=== PATIENT | male | born 1955 | race Hispanic/Latino ===

== ENCOUNTER 2023-04-07 21:57 | Emergency (ER) | payer BC ==
--- OUTSIDE RECORDS SUMMARY | 2023-04-07 22:01 | XMS REPORT | Continuity of Care Document ---
:1955 Author Organization [facility] t Address [address] [facility] [address] [place] [id number] Care Team Providers Name Role Phone MATTHEW CLARK Attending Clinician Unavailable DEEPALI ROSS Attending Clinician Unavailable Lab, Adc Fam Pob I Attending Clinician Unavailable Sybil Ackerman Attending Clinician SYBIL HENDERSON Attending Clinician Unavailable Hardy DE LEON, Jennifer Chapa Attending Clinician Unavailable Kory Dumont MD Attending Clinician [facility] Attending Clinician Unavailable Joey Fowler Attending Clinician JOEY CRUZ Attending Clinician Unavailable Payers Payer Name Policy Type Policy Number Effective Date Expiration Date [id number] 00:00:00 OUT OF STATE Problems This patient has no known problems. Allergies, Adverse Reactions, Alerts Allergy Allergy Status Severity Reaction(s) Onset Inactive Treating Comm ents Source Name Type Date Date Clinician NO KNOWN Drug Active Univers ALLERGIE Class [facility] Social History Social Habit Start Date Stop Date Quantity Comments Source Sex Assigned At Uni versity [facility] Exposure to SARS-CoV-2 Not sure Un iversity [facility] (event) [facility] Smoking Status Start Date Stop Date Source Unknown if ever smoked Universit [facility] Medications Ordered Filled Start Stop Current Ordering Indication Dosage Frequency Signature Comments Components Source Medication Medication Date Date Medication? Clinician (SIG) Name Name No known No Univers medications [facility] No known No Univers medications [facility] No known No Univers medications [facility] No known No Univers medications [facility] No known No Univers medications [facility] Vital Signs Vital Name Observation Time Observation Value Comments Source Systolic blood 2020-04-21 01:03:00 134 mm[Hg] Univer sity of pressure [facility] Diastolic blood 2020-04-21 01:03:00 93 mm[Hg] Unive rsity of pressure [facility] Heart rate 2020-04-21 01:03:00 91 /min Universi [facility] Body temperature 2020-04-21 01:03:00 37.17 Negra [facility] Respiratory rate 2020-04-21 01:03:00 18 /min [facility] Body height 2020-04-21 01:03:00 [facility] weight 2020-04-21 01:03:00 76.114 kg [facility] BMI 2020-04-21 01:03:00 29.72 kg/m2 [facility] Oxygen saturation in 2020-04-21 01:03:00 98 /min [facility] Arterial blood by [facility] Pulse oximetry Branch Procedures This patient has no known procedures. Encounters Start End Encounter Admission Attending Care Care Encounter Source Date/Time Date/Time Type Type Clinicians Facility Department ID 2020-10-25 2020-10-25 Outpatient Ceci CLARK [facility] [id number] Univers 09:00:00 09:00:00 [facility] 2020-10-22 2020-10-22 Outpatient Ceci CLARK [facility] [id number] Univers 10:00:00 10:00:00 [facility] 2020-10-18 2020-10-18 Outpatient Ceci CLARK [facility] [id number] Univers 16:25:00 16:25:00 [facility] 2020-10-13 2020-10-13 Outpatient Ceci ROSS [facility] [id number] Univers 10:30:00 10:30:00 DEEPALI [facility] 2020-09-15 2020-09-15 Outpatient [facility] [id number] Univers 16:30:00 16:30:00 [facility] 2020-05-03 2020-05-03 Laboratory Lab, Adc Fam Pob I [facility] [id number] Univers 10:28:19 10:48:19 Only Sybil Henderson [facility] [id number] ity of [place] [id number] Robbie as Professio [phone] [address] Office [facility] 2020-05-03 2020-05-03 Outpatient R SANTIAGO [facility] [id number] Univers 10:20:00 10:20:00 SYBIL [facility] 2020-04-22 2020-04-22 Letter NATY Dash [id number] Univers 00:00:00 00:00:00 (Out) Jennifer Chapa JULIETA [id number] it y of [facility] [id number] Robbie as [phone] [address] 2020-04-22 2020-04-22 Telephone NATY Dumont [id number] Univers 00:00:00 00:00:00 Kory RENDON [id number] i ty [facility] [id number] Robbie as [phone] [address] 2020-04-20 2020-04-20 Urgent Provider, [facility] [id number] Univers 18:40:16 19:00:16 Care Joey Cruz [facility] [id number] ity [place] [id number] Robbie as Professio [phone] [address] Office Building [facility] 2020-04-20 2020-04-20 Outpatient R ANTHONY [facility] [id number] Univers 19:00:00 [facility]00[facility] Results This patient has no known results.
[2023-04-07] MEDS ORDERED: dexAMETHasone 10 MG/ML VIAL ONE (23:10)
[2023-04-07] MEDS ORDERED: NA CHLORIDE 0.9% 1,000 ML ONE (23:10)
[2023-04-07] MEDS ORDERED: METOCLOPRAMIDE 10 MG/2mL INJ ONE (23:10)
[2023-04-07] MEDS ORDERED: MECLIZINE HCL 12.5 MG TAB ONE (23:10)
[2023-04-07 23:11] LABS: Absolute Lymphocytes (CBC) 0.8 K/uL (0.7-4.9); Hematocrit 40.5 % (39.6-49.0); Lymphocytes % 10.4 % (15.3-44.8); MCV 85.1 fL (80-100); MPV 7.9 fL (7.6-11.3); Platelets 278 thou/uL (152-406); RBC Red Blood Cell Count 4.76 M/uL (4.33-5.43)
[2023-04-07 23:33] LABS: Magnesium 2.1 mg/dL (1.6-2.4); Potassium 3.7 mEq/L (3.5-5.1)
--- NOTE | 2023-04-08 01:24 | ER ---
Nurse's Notes [facility] Name: Yobani Al Age: 67 yrs Sex: Male : 1955 Arrival Date: 04/07/2023 Time: 21:57 Bed 2 Private MD: Diagnosis: Headache;Dizziness and giddiness;Diabetes mellitus due to underlying condition with hyperglycemia;Nausea with vomiting, unspecified Presentation: 04/07 22:31 Chief complaint: Patient states: headache to the top of his head X1 month. Pt states cm10 that the headache got worse tonight. Pt reports dizziness that started a few hours ago. Also reports that he has not been taking his diabetes medication like he should. Pt denies any other symptoms. Coronavirus screen: Vaccine status: Patient reports receiving the 2nd dose of the covid vaccine. Client denies travel out of the [place] in the last 14 days. Ebola Screen: Patient denies travel to an Ebola-affected area in the 21 days before illness onset. No symptoms or risks identified at this time. Initial Sepsis Screen: Does the patient meet any 2 criteria? No. Patient's initial sepsis screen is negative. Does the patient have a suspected source of infection? No. Patient's initial sepsis screen is negative. Risk Assessment: Do you want to hurt yourself or someone else? Patient reports no desire to harm self or others. Onset of symptoms was April 07, 2023. 22:31 Method Of Arrival: Ambulatory cm10 22:31 Acuity: DK 3 cm10 Triage Assessment: 22:51 Headache History: The patient has had previous headaches and this one is similar to km8 previous episodes. General: Appears in no apparent distress. comfortable, Behavior is calm, cooperative, appropriate for age. Pain: Complains of pain in top of head Pain currently is 8 out of 10 on a pain scale. Quality of pain is described as aching, Pain began 1 month ago Also complains of nausea. Historical: - Allergies: 22:33 No Known Allergies; cm10 - PMHx: 22:33 Diabetes mellitus; cm10 - Immunization history:: Adult Immunizations unknown. - Social history:: Smoking status: Patient denies any tobacco usage or history of. Screenin:47 [facility] ED Fall Risk Assessment (Adult) History of falling in the last 3 months, km8 including since admission No falls in past 3 months (0 pts) Confusion or Disorientation No (0 pts) Intoxicated or Sedated No (0 pts) Impaired Gait No (0 pts) Mobility Assist Device Used No (0 pt) Altered Elimination No (0 pt) Score/Fall Risk Level 0 - 2 = Low Risk Oriented to surroundings, Maintained a safe environment, Educated pt \T\ family on fall prevention, incl call for assistance when getting out of bed, Assessed \T\ reinforced patient's understanding of fall precautions. Abuse screen: Denies threats or abuse. Denies injuries from another. Nutritional screening: No deficits noted. Tuberculosis screening: No symptoms or risk factors identified. Assessment: 22:47 General: Appears in no apparent distress. comfortable, Behavior is calm, cooperative, km8 appropriate for age. Pain: Complains of pain in top of head Pain currently is 8 out of 10 on a pain scale. Quality of pain is described as aching, Pain began 1 month ago. Neuro: Esteban Agitation-Sedation Scale (RASS): 0 - Alert and Calm Level of Consciousness is awake, alert, obeys commands, Oriented to person, place, time, situation, Reports headache since 1 month ago top of head. Cardiovascular: Denies chest pain, shortness of breath, Capillary refill < 3 seconds Patient's skin is warm and dry. Respiratory: Airway is patent Respiratory effort is even, unlabored, Respiratory pattern is regular, symmetrical. GI: Reports vomiting, since 1500 x2 episodes; nausea resolved after. : No deficits noted. No signs and/or symptoms were reported regarding the genitourinary system. EENT: No deficits noted. No signs and/or symptoms were reported regarding the EENT system. Derm: No deficits noted. No signs and/or symptoms reported regarding the dermatologic system. Skin is intact, is healthy with good turgor, Skin is dry, Skin is pink, warm \T\ dry. normal, Skin temperature is warm. Musculoskeletal: No deficits noted. No signs and/or symptoms reported regarding the musculoskeletal system. Range of motion: intact in all extremities. 04/08 00:00 Reassessment: Patient appears in no apparent distress at this time. Patient and/or km8 family updated on plan of care and expected duration. Pain level reassessed. Patient is alert, oriented x 3, equal unlabored respirations, skin warm/dry/pink. Patient states feeling better. Patient states symptoms have improved. 01:00 Reassessment: Patient appears in no apparent distress at this time. No changes from km8 previously documented assessment. Patient and/or family updated on plan of care and expected duration. Pain level reassessed. Patient is alert, oriented x 3, equal unlabored respirations, skin warm/dry/pink. Vital Signs: 04/07 22:31 BP 146 / 78; Pulse 62; Resp 16; Temp 97.6; Pulse Ox 100% ; Weight 70.76 kg; Height 5 cm10 ft. 3 in. ; Pain 8/10; 22:47 BP 137 / 71; Pulse 63; Resp 16 S; Pulse Ox 99% on R/A; km8 23:00 BP 149 / 81; Pulse 59; Resp 16 S; Pulse Ox 100% on R/A; km8 04/08 00:00 BP 137 / 71; Pulse 63; Resp 15; Pulse Ox 100% on R/A; km8 00:30 BP 126 / 67; Pulse 67; Resp 15 S; Pulse Ox 99% on R/A; km8 01:52 BP 119 / 71; Pulse 66; Resp 16 S; Pulse Ox 100% on R/A; lg3 04/07 22:31 Body Mass Index 27.63 (70.76 kg, 160.02 cm) cm10 04/07 22:31 Pain Scale: Adult cm10 ED Course: 04/07 22:06 Patient arrived in ED. gm2 22:19 Zeke Galan PA is PHCP. cp 22:19 Dex Curtis MD is Attending Physician. cp 22:33 Triage completed. cm10 22:33 Arm band placed on Patient placed in an exam room, on a stretcher, on pulse oximetry. cm10 22:40 Danuta Mejia RN is Primary Nurse. km8 22:47 Patient has correct armband on for positive identification. Placed in gown. Bed in low km8 position. Call light in reach. Side rails up X 1. Client placed on continuous cardiac and pulse oximetry monitoring. NIBP monitoring applied. 22:47 Inserted saline lock: 20 gauge in left forearm, using aseptic technique. Blood km8 collected. Patient maintains SpO2 saturation greater than 95% on room air. 23:18 XRAY Chest (1 view) In Process Unspecified. EDMS 23:41 CT Head Brain wo Cont In Process Unspecified. EDOR 04/08 01:11 Urinalysis W/Microscopic Sent. [facility] 01:52 No provider procedures requiring assistance completed. IV discontinued, intact, lg3 bleeding controlled, No redness/swelling at site. Pressure dressing applied. Administered Medications: 04/07 23:12 Drug: NS 0.9% IV 500 ml IV at bolus once Route: IV; Rate: bolus; Site: left forearm; [facility] 23:48 Follow up: IV Status: Completed infusion; IV Intake: 500ml [facility] 23:12 Drug: Meclizine PO 25 mg PO once Route: PO; [facility] 23:48 Follow up: Response: No adverse reaction [facility] 23:47 Drug: metoCLOPramide IVP 10 mg IVP once; over 1 to 2 minutes Route: IVP; Site: left [facility] forearm; 04/08 01:03 Follow up: Response: No adverse reaction [facility] 04/07 23:47 Drug: Decadron - Dexamethasone IVP 10 mg IVP once Route: IVP; Site: left forearm; [facility] 04/08 01:03 Follow up: Response: No adverse reaction [facility] 04/07 23:48 Drug: NS 0.9% IV 500 ml IV at 125 ml/hr continuous Route: IV; Rate: 125 ml/hr; Site: [facility] left [facility]; 04/08 01:53 Follow up: IV Status: Completed infusion lg3 Medication: 01:52 VIS not applicable for this client. lg3 Intake: 04/07 23:48 IV: 500ml; Total: 500ml. [facility] Outcome: 04/08 01:23 Discharge ordered by . cp 01:52 Discharged to home ambulatory, with significant other, lg3 01:52 Condition: stable 01:52 Discharge instructions given to patient, significant other, Instructed on discharge instructions, follow up and referral plans. medication usage, Demonstrated understanding of instructions, follow-up care, medications, Prescriptions given X 2, 01:54 Patient left the ED. lg3 Signatures: Dispatcher [employer] EDOR Zeke Galan PA PA cp Gibson, Lacie, RN RN lg3 Paola Nieto RN RN cm10 Nika Veras 2 Danuta Mejia RN RN km8
--- NOTE | 2023-04-08 01:24 | EDPHYS ---
Physician Documentation [facility] Name: Yobani Al Age: 67 yrs Sex: Male : 1955 Arrival Date: 04/07/2023 Time: 21:57 Bed 2 Private MD: ED Physician Dex Curtis HPI: 04/07 22:40 This 67 yrs old Male presents to ER via Ambulatory with complaints of High cp Blood Sugar, Headache, Nausea/Vomiting. 22:40 The patient or guardian reports hyperglycemia, that was potentially precipitated by not cp taking prescribed metformin. 22:40 Patient is a 67-year-old male with past medical history significant for diabetes. cp Patient reports he stopped taking his prescribed metformin and comes in today with complaints of a headache that starts in the top and in the front of his head that he has had for the past month, dizziness that started this evening and an episode of vomiting. Patient reports he has noticed his blood sugars been high but denies any chest pain and/or abdominal pain. Historical: - Allergies: 22:33 No Known Allergies; cm10 - PMHx: 22:33 Diabetes mellitus; cm10 - Immunization history:: Adult Immunizations unknown. - Social history:: Smoking status: Patient denies any tobacco usage or history of. ROS: 22:45 Constitutional: Negative for body aches, chills, fever, poor PO intake, cp 22:45 Eyes: Negative for injury, pain, redness, and discharge, cp 22:45 ENT: Negative for drainage from ear(s), ear pain, sore throat, difficulty swallowing, difficulty handling secretions, 22:45 Cardiovascular: Negative for chest pain, edema, palpitations, 22:45 Respiratory: Negative for cough, shortness of breath, wheezing, 22:45 Abdomen/GI: Positive for nausea and vomiting, Negative for abdominal pain, 22:45 : Negative for urinary symptoms, 22:45 Neuro: Positive for dizziness, headache, Negative for altered mental status, numbness, syncope, weakness, 22:45 All other systems are negative, Exam: 22:50 Constitutional: The patient appears in no acute distress, alert, awake, cp non-diaphoretic, non-toxic, well developed, well nourished, 22:50 Head/Face: Normocephalic, atraumatic. cp 22:50 Eyes: Periorbital structures: appear normal, Pupils: equal, round, and reactive to light and accomodation, Extraocular movements: intact throughout, Conjunctiva: normal, no exudate, no injection, Sclera: no appreciated abnormality, Lids and lashes: appear normal, bilaterally, 22:50 ENT: External ear(s): are unremarkable, Nose: is normal, Mouth: Lips: moist, Oral mucosa: pink and intact, moist, Posterior pharynx: is normal, airway is patent, no erythema, no exudate, 22:50 Neck: ROM/movement: is normal, is supple, without pain, no range of motions limitations, no meningismus, no nuchal rigidity, 22:50 Chest/axilla: Inspection: normal, 22:50 Cardiovascular: Rate: normal, Rhythm: regular, Edema: is not appreciated, JVD: is not appreciated, 22:50 Respiratory: the patient does not display signs of respiratory distress, Respirations: normal, no use of accessory muscles, no retractions, labored breathing, is not present, Breath sounds: are clear throughout, no decreased breath sounds, no stridor, no wheezing, 22:50 Abdomen/GI: Inspection: abdomen appears normal, Bowel sounds: active, all quadrants, Palpation: soft, in all quadrants, mild abdominal tenderness, in the epigastric area, rebound tenderness, is not appreciated, involuntary guarding, is not appreciated, 22:50 Back: pain, is absent, ROM is normal, 22:50 Neuro: Orientation: to person, place \T\ time. Mentation: is normal, Cerebellar function: is grossly normal, Motor: moves all fours, strength is normal, Sensation: is normal, 23:15 ECG was reviewed by the Attending Physician. cp Vital Signs: 22:31 BP 146 / 78; Pulse 62; Resp 16; Temp 97.6; Pulse Ox 100% ; Weight 70.76 kg; Height 5 cm10 ft. 3 in. ; Pain 8/10; 22:47 BP 137 / 71; Pulse 63; Resp 16 S; Pulse Ox 99% on R/A; km8 23:00 BP 149 / 81; Pulse 59; Resp 16 S; Pulse Ox 100% on R/A; km8 04/08 00:00 BP 137 / 71; Pulse 63; Resp 15; Pulse Ox 100% on R/A; km8 00:30 BP 126 / 67; Pulse 67; Resp 15 S; Pulse Ox 99% on R/A; km8 01:52 BP 119 / 71; Pulse 66; Resp 16 S; Pulse Ox 100% on R/A; lg3 04/07 22:31 Body Mass Index 27.63 (70.76 kg, 160.02 cm) cm10 04/07 22:31 Pain Scale: Adult cm10 MDM: 04/07 22:21 Patient medically screened. 04/08 01:22 Data reviewed: vital signs, nurses notes, lab test result(s), EKG, radiologic studies, cp CT scan, plain films. 01:22 Differential diagnosis: DKA, TIA, CVA, electrolyte abnormality, cardiac arrythmia. I cp considered the following discharge prescriptions or medication management in the emergency department Medications were administered in the Emergency Department. See MAR. Independent interpretation of the following test(s) in the Emergency Department EKG: See my EKG interpretation above. Test considered but Not performed: MRI: brain. Care significantly affected by the following chronic conditions: Diabetes. Counseling: I had a detailed discussion with the patient and/or guardian regarding the historical points, exam findings, and any diagnostic results supporting the discharge/admit diagnosis, lab results, radiology results, the need for outpatient follow up, a family practitioner, to return to the emergency department if symptoms worsen or persist or if there are any questions or concerns that arise at home. Response to treatment: the patient's symptoms have markedly improved after treatment, and as a result, I will discharge patient. 04/07 22:44 Order name: Glucose, Ancillary Testing; Complete Time: 22:48 EDMS 04/07 22:50 Order name: Basic Metabolic Panel; Complete Time: 00:43 cp 04/08 00:43 Interpretation: Normal except: NA 134; GLUC 214; CA 8.0. 04/07 22:50 Order name: CBC with Diff; Complete Time: 00:43 cp 04/08 00:43 Interpretation: Normal except: MARLO% 85.1; LYM% 10.4. cp 04/07 22:50 Order name: Magnesium; Complete Time: 00:43 cp 04/07 22:50 Order name: Troponin HS; Complete Time: 00:43 cp 04/07 22:50 Order name: Urinalysis W/Microscopic; Complete Time: 01:30 cp 04/08 01:30 Interpretation: Normal except: UGLUC 3+. cp 04/07 22:50 Order name: XRAY Chest (1 view) cp 04/07 22:50 Order name: CT Head Brain wo Cont cp 04/07 22:50 Order name: EKG; Complete Time: 22:51 cp 04/07 22:42 Order name: Accucheck Blood Glucose; Complete Time: 22:47 cp 04/07 22:50 Order name: Cardiac monitoring; Complete Time: 23:12 cp 04/07 22:50 Order name: EKG - Nurse/Tech; Complete Time: 23:12 cp 04/07 22:50 Order name: IV Saline Lock; Complete Time: 22:50 04/07 22:50 Order name: Labs collected and sent; Complete Time: 23:12 cp 04/07 22:50 Order name: O2 Per Protocol; Complete Time: 22:50 04/07 22:50 Order name: O2 Sat Monitoring; Complete Time: 22:50 cp EC/28 23:15 Rate is 60 beats/min. Rhythm is regular. MO interval is normal. QRS interval is cp prolonged at 128 msec. QT interval is normal. T waves are Inverted in lead aVR. Interpreted by me. Reviewed by me. Administered Medications: 23:12 Drug: NS 0.9% IV 500 ml IV at bolus once Route: IV; Rate: bolus; Site: left forearm; 23:48 Follow up: IV Status: Completed infusion; IV Intake: 500ml [facility] 23:12 Drug: Meclizine PO 25 mg PO once Route: PO; 23:48 Follow up: Response: No adverse reaction [facility] 23:47 Drug: metoCLOPramide IVP 10 mg IVP once; over 1 to 2 minutes Route: IVP; Site: left [address]; 04/08 01:03 Follow up: Response: No adverse reaction [facility] 04/07 23:47 Drug: Decadron - Dexamethasone IVP 10 mg IVP once Route: IVP; Site: left forearm; [facility] 04/08 01:03 Follow up: Response: No adverse reaction [facility] 04/07 23:48 Drug: NS 0.9% IV 500 ml IV at 125 ml/hr continuous Route: IV; Rate: 125 ml/hr; Site: [facility] left [facility]; 04/08 01:53 Follow up: IV Status: Completed infusion lg3 Disposition: 02:43 Co-signature as Attending Physician, Dex Curtis MD I reviewed the patient's care rt provided by the Advanced Practice Provider and agree with the diagnosis and treatment plan. Disposition Summary: 04/08/23 01:23 Discharge Ordered Notes: Location: Home cp Problem: new cp Symptoms: have improved cp Condition: Stable cp Diagnosis - Headache cp - Dizziness and giddiness cp - Diabetes mellitus due to underlying condition with hyperglycemia cp - Nausea with vomiting, unspecified cp Followup: cp - With: Private Physician - When: 2 - 3 days - Reason: Recheck today's complaints Discharge Instructions: - Discharge Summary Sheet cp - Dizziness cp - General Headache Without Cause cp - Hyperglycemia cp - Nausea and Vomiting, Adult cp - Daily Diabetes Mellitus Record cp - Blood Glucose Monitoring, Adult cp - Diabetes Mellitus and Nutrition, Adult cp Forms: - Medication Reconciliation Form cp - Thank You Letter cp - Antibiotic Education cp - Prescription Opioid Use cp - Patient Portal Instructions cp - Leadership Thank You Letter cp Prescriptions: - Meclizine 25 mg Oral Tablet - take 1 tablet ORAL route every 8 hours As needed; 30 tablet; Refills: 0, cp Product Selection Permitted - Zofran 4 mg Oral Tablet - take 1 tablet ORAL route every 12 hours As needed; 20 tablet; Refills: 0, cp Product Selection Permitted Signatures: Dispatcher [employer] EDNE Zeke Galan PA PA cp Dex Curtis MD MD rt Paola Nieto RN RN cm10 Danuta Mejia RN RN km8 Delilah Baca RN lg3
[2023-04-08 01:29] LABS: Specific Gravity 1.007 (1.005-1.030); Urine Bacteria None Seen /HPF (<20); Urine Bilirubin NEGATIVE (Negative); Urine Blood Negative (Negative); Urine Clarity Clear (Clear); Urine Color Colorless (Yellow); Urine Glucose 3+ (Negative); Urine Protein NEGATIVE (Negative); Urine RBC <5 /HPF (None Seen); Urine Urobilinogen Normal (Normal)
[2023-04-08 02:01] VITALS: TEMP 97.6
[2023-04-08 02:08] VITALS: BP 119/71; O2SAT 100
--- NOTE | 2023-04-09 16:07 | RAD REPORT ---
EXAM DESCRIPTION: CT - Head Brain Wo Cont - 04/08/2023 6:28 am CLINICAL HISTORY: HEADACHE COMPARISON: None available TECHNIQUE: Axial CT of the head obtained from the skull apex to the skull base without contrast. Thi s exam was performed according to our departmental dose-optimization program, which includes automate d exposure control, adjustment of the mA and/or kV according to patient size and/or use of iterative reconstruction technique. FINDINGS: No acute intracranial hemorrhage identified. No mass, mass effect, midline shift, or abnor mal extra-axial fluid collection. No CT evidence of acute ischemic change identified, however, MRI is more sensitive in the assessment of acute ischemia. No acute abnormalities of the supratentorial white matter, basal ganglia, cerebellum, or brainstem. Ventricular system and sulcal spaces are norm al in size and morphology. Basilar cisterns are patent. No skull fracture identified. Visualized orbits and globes show no acute abnormality. The visuali zed paranasal sinuses and the mastoid air cells are relatively well aerated. IMPRESSION: No acute intracranial abnormality on noncontrast CT. Electronically signed by: Brenda Soria MD 04/08/2023 12:00 AM CDT Due to temporary technical issues with the PACS/Fluency reporting system, reports are being signed by the in house radiologists without review as a courtesy to insure prompt reporting. The interpreting radiologist is fully responsible for the content of the report.
--- NOTE | 2023-04-09 16:08 | RAD REPORT ---
EXAM DESCRIPTION: RAD - Chest Single View - 04/07/2023 11:16 pm CLINICAL HISTORY: 67 years Male dizziness COMPARISON: None FINDINGS: Lung volumes diminished. Mild bronchovascular crowding. Cardiac silhouette is normal in size. No pneumothorax. No large pleural effusion. No focal consolidation. No acute bony finding. IMPRESSION: 1. No acute cardiopulmonary findings. 2. Low lung volumes with hypoventilatory changes. Electronically signed by: Chris Price MD 04/07/2023 11:24 PM CDT Due to temporary technical issues with the PACS/Fluency reporting system, reports are being signed by the in house radiologists without review as a courtesy to insure prompt reporting. The interpreting radiologist is fully responsible for the content of the report.
--- NOTE | 2023-04-10 07:56 | EKG ---
Test Date: 2023-04-07 Test Time: 23:09:41 [employer] Professor: MIKEY MEASUREMENT RESULTS: Intervals: Rate: 60 LA: 174 QRSD: 128 QT: 446 QTc: 446 [place]: P: LA: 174 QRS: 139 T: 27 INTERPRETIVE STATEMENTS: Normal sinus rhythm Right bundle branch block Abnormal ECG Compared to ECG 08/09/2004 07:45:00 Right bundle-branch block now present Sinus bradycardia no longer present Right-axis deviation no longer present Electronically Signed On 04-10-23 07:52:14 CDT by Shadi Chen
== END 2023-04-08 01:54 | disposition home or self-care (01) ==
LOC: ER 21:57
DX: E11.65 Type 2 diabetes mellitus with hyperglycemia (principal); R42 Dizziness and giddiness; R11.2 Nausea with vomiting, unspecified
CPT/HCPCS: 96361; 93005; 85025; 81001; 80048; 36415; 83735; 82947; 84484; 70450; 71045; 96375; 96374; 99285; J8597; J2765; J1100; J7030